=== PATIENT | male | born 1960 | race Caucasian/White ===

== ENCOUNTER 2016-12-02 01:48 | Emergency (ER) | payer SELFPAY ==
[~2016-12-02] VITALS: Ht 177.8 cm; Wt 60.2 kg
[2016-12-02 02:30] LABS: HEMATOCRIT 43.2 % (38.0-50.0); MCH 33.2 PG (29.0-34.0); MCV 94.9 FL (86-99); MEAN PLAT.VOLUME 9.3 uM^3 (9.0-12.4); PLATELET COUNT 286 K/uL (156-360); RBC DIS.WIDTH-CV 12.5 % (11.8-14.6); RBC DIS.WIDTH-SD 43.8 % (39-53); RED BLOOD COUNT 4.55 M/uL (4.00-5.50); WHITE BLOOD COUNT 8.2 K/uL (4.1-10.2)
[2016-12-02 02:40] LABS: GLUCOSE 104 mg/dL (70-99)
[2016-12-02 02:42] LABS: TOTAL BILIRUBIN 0.3 mg/dL (0.0-1.0)
[2016-12-02 02:43] LABS: ALKALINE PHOSPHATASE 98 IU/L (3-129); SERUM ETHYL ALCOHOL 352 mg/dL
[2016-12-02 02:44] LABS: GFR ESTIMATE (CALCULATED) > 59 mL/min/
[2016-12-02 02:45] LABS: UREA NITROGEN (BUN) 5 mg/dL (9-23)
[2016-12-02 03:04] LABS: CHLORIDE 97 mEq/L (99-109); POTASSIUM 3.9 mEq/L (3.7-5.4); SODIUM 138 mEq/L (136-147)
[2016-12-02 03:07] LABS: ANION GAP 16 MEQ/L (2-14)
[2016-12-02 06:15] VITALS: BP 132/89
== END 2016-12-02 06:15 | disposition home or self-care (01) ==
LOC: TRA 01:48 → EME 01:48 → TRA 06:15
PROVIDERS: Emergency Medicine
PROC: 3E0234Z Introduction of Serum, Toxoid and Vaccine into Muscle, Percutaneous Approach (ICD-10-PCS; principal; 2016-12-02)
DX: S22.31XA Fracture of one rib, right side, initial encounter for closed fracture (principal); S80.812A Abrasion, left lower leg, initial encounter; F10.129 Alcohol abuse with intoxication, unspecified; Y90.8 Blood alcohol level of 240 mg/100 ml or more; W17.2XXA Fall into hole, initial encounter; Z23 Encounter for immunization; F17.200 Nicotine dependence, unspecified, uncomplicated
CPT/HCPCS: 70450; 71260; 72125; 74177; 80053; 85027; 99281; 99285; G0480; J2270; J7030